=== PATIENT | female | born 1980 | race African-American/Black ===

== ENCOUNTER 2020-08-08 20:38 | Emergency (ER) | payer MEDICAID ==
[~2020-08-08] VITALS: Ht 175.3 cm; Wt 83.9 kg
--- NOTE | 2020-08-08 21:20 | NUR ---
ED Nurse Note: Recieved pt walk in from home, here with c/o lower abdominal pain since yesterday after drinking alcohol, pt states no appetite today and pain is worse, rated at 10/10, denies fevers, states also no appetite and when attempting to eat has emesis, pt urine sample collected and sent, gowned and placed on monitoring, will resume care as ordered by md whom is at bedside.
[2020-08-08 21:25] LABS: BASOPHILS % (AUTO) 0.7 % (0.0-2.0); EOSINOPHILS % (AUTO) 0.7 % (0.0-3.0); LYMPHOCYTES % (AUTO) 17.6 % (20.0-45.0); MEAN CORPUSCULAR VOLUME 98 FL (80-99); MONOCYTES % (AUTO) 4.1 % (1.0-10.0); NEUTROPHILS % (AUTO) 76.9 % (45.0-75.0); PLATELET COUNT 247 K/UL (150-450); RED CELL DISTRIBUTION WIDTH 12.1 % (11.6-14.8); WHITE BLOOD COUNT 12.3 K/UL (4.8-10.8)
[2020-08-08 21:26] LABS: APPEARANCE,URINE CLEAR; BILIRUBIN, URINE NEGATIVE (NEGATIVE); COLOR,URINE BROWN; GLUCOSE, URINE (UA) NEGATIVE (NEGATIVE); KETONES,URINE 4+ (NEGATIVE); LEUKOCYTE ESTERASE ,URINE 1+ (NEGATIVE); NITRITE,URINE POSITIVE (NEGATIVE); PH,URINE 6.5 (4.5-8.0); PROTEIN,URINE 2+ (NEGATIVE); UROBILINOGEN,URINE 1 MG/DL (0.0-1.0)
[2020-08-08] MEDS ORDERED: Ketorolac 30mg Inj IV ONE (21:30)
[2020-08-08] MEDS ORDERED: Omnipaque-300 100ml vial INJ PRN (21:30)
[2020-08-08 21:35] LABS: ANION GAP 3 mmol/L (5-15); BLOOD UREA NITROGEN 12 mg/dL (7-18); CALCIUM 8.8 MG/DL (8.5-10.1); CARBON DIOXIDE 31 MMOL/L (21-32); CHLORIDE 103 MMOL/L (98-107); CREATININE 0.9 MG/DL (0.55-1.30); POTASSIUM 3.3 MMOL/L (3.5-5.1); SODIUM 137 MMOL/L (136-145)
[2020-08-08 21:39] LABS: ALANINE AMINOTRANSFERASE 27 U/L (12-78); ALBUMIN 3.9 G/DL (3.4-5.0); ALKALINE PHOSPHATASE 58 U/L (46-116); ASPARTATE AMINO TRANSFERASE 15 U/L (15-37); BILIRUBIN,TOTAL 0.5 MG/DL (0.2-1.0)
[2020-08-08] MEDS ORDERED: Levofloxacin 750mg tab ORAL ONE (22:15)
[2020-08-08] MEDS ORDERED: Morphine Sulfate 4mg/ml Inj (IV USE ONLY) IVP ONE (22:15)
--- NOTE | 2020-08-08 22:15 | NUR ---
ED Nurse Note: Pt continues to rest quietly in bed, states pain meds not effective at all, md barry, new med orders recieved, will medicate as ordered with pain meds and antibiotic, monitor for any adverse reactions and effectiveness, and prepare for disposition.
--- NOTE | 2020-08-08 22:24 | Emergency Room Report ---
History of Present Illness General Chief Complaint: Abdominal Pain Source: Patient Present Illness HPI disclaimer: Please note that this report is being documented using [employer] technology. This can lead to erroneous entry secondary to incorrect interpretation by the dictating instrument. HPI: 40-year-old female no reported past medical history presents for abdominal pain. She states she has had lower abdominal pain with diarrhea and dysuria for the past 24 hours. Symptoms started last night. She reports 10 on 10 pain. Radiating to the back. No vaginal bleeding. No vaginal discharge. Last menstrual cycle approximately 1 month ago. After Allergies: Coded Allergies: PENICILLINS (Verified Allergy, Unknown, 08/08/20) COVID-19 Screening Contact w/high risk pt: No Experienced COVID-19 symptoms?: No COVID-19 Testing performed TEXT TRANSCRIBER: No Patient History Now: No Reviewed Nursing Documentation: PMH: Agreed; PSxH: Agreed Nursing Documentation-PMH Past Medical History: No Stated History Review of Systems All Other Systems: negative except mentioned in HPI Physical Exam Vital Signs Date Time Temp Pulse Resp B/P (MAP) Pulse Ox O2 Delivery O2 Flow Rate FiO2 08/08/20 20:56 99.0 98 20 132/90 (104) 98 Room Air Sp02 EP Interpretation: reviewed, normal General Appearance: well appearing, no apparent distress Head: normocephalic, atraumatic Eyes: bilateral eye PERRL, bilateral eye EOMI ENT: hearing grossly normal, moist mucus membranes Neck: full range of motion, supple Respiratory: lungs clear, normal breath sounds, no rhonchi, no respiratory distress, no retraction, no wheezing Cardiovascular #1: normal peripheral pulses, regular rate, rhythm, no murmur Gastrointestinal: soft, non-distended, no guarding, tenderness - Mild suprapubic tenderness noted no right lower quadrant tenderness noted Neurologic: alert, oriented x3, no focal defects Skin: normal color, warm/dry Medical Decision Making Diagnostic Impression: Primary Impression: Lower abdominal pain Additional Impression: UTI (urinary tract infection) ER Course MDM: Differential diagnosis included but not limited to UTI, pyelonephritis, gastroenteritis, gastritis, pancreatitis time review Clinical course-IV inserted IV fluids antiemetics and pain control given. Urine was positive for nitrites. Patient had no specific right lower quadrant tenderness but had mild suprapubic tenderness with dysuria also complained of diarrhea. I did consider CT scan initially however since patient has evidence of UTI we will treat with oral antibiotics and pain control. She is not improved on oral antibiotic she may return however I do believe she is stable for discharge at this time. Labs - Laboratory Tests Test 08/08/20 21:05 08/08/20 21:20 Urine Color Brown Urine Appearance Clear Urine pH 6.5 (4.5-8.0) Urine Specific [place] 1.015 (1.005-1.035) Urine Protein 2+ (NEGATIVE) H Urine Glucose (UA) Negative (NEGATIVE) Urine Ketones 4+ (NEGATIVE) H Urine Blood 2+ (NEGATIVE) H Urine Nitrite Positive (NEGATIVE) H Urine Bilirubin Negative (NEGATIVE) Urine Urobilinogen 1 MG/DL (0.0-1.0) H Urine Leukocyte Esterase 1+ (NEGATIVE) H Urine RBC 20-30 /HPF (0 - 2) H Urine WBC 2-4 /HPF (0 - 2) Urine Squamous Epithelial Cells Few /LPF (NONE/OCC) Urine Bacteria Few /HPF (NONE) Urine Mucus Many /LPF (NONE/OCC) H Urine HCG, Qualitative Negative (NEGATIVE) White Blood Count 12.3 K/UL (4.8-10.8) H Red Blood Count 4.30 M/UL (4.20-5.40) Hemoglobin 14.0 G/DL (12.0-16.0) Hematocrit 42.0 % (37.0-47.0) Mean Corpuscular Volume 98 FL (80-99) Mean Corpuscular Hemoglobin 32.5 PG (27.0-31.0) H Mean Corpuscular Hemoglobin Concent 33.3 G/DL (32.0-36.0) Red Cell Distribution Width 12.1 % (11.6-14.8) Platelet Count 247 K/UL (150-450) Mean Platelet Volume 7.2 FL (6.5-10.1) Neutrophils (%) (Auto) 76.9 % (45.0-75.0) H Lymphocytes (%) (Auto) 17.6 % (20.0-45.0) L Monocytes (%) (Auto) 4.1 % (1.0-10.0) Eosinophils (%) (Auto) 0.7 % (0.0-3.0) Basophils (%) (Auto) 0.7 % (0.0-2.0) Sodium Level 137 MMOL/L (136-145) Potassium Level 3.3 MMOL/L (3.5-5.1) L Chloride Level 103 MMOL/L (98-107) Carbon Dioxide Level 31 MMOL/L (21-32) Anion Gap 3 mmol/L (5-15) L Blood Urea Nitrogen 12 mg/dL (7-18) Creatinine 0.9 MG/DL (0.55-1.30) Estimated Glomerular Filtration Rate > 60 mL/min (>60) Glucose Level 112 MG/DL (74-106) H Calcium Level 8.8 MG/DL (8.5-10.1) Total Bilirubin 0.5 MG/DL (0.2-1.0) Aspartate Amino Transferase (AST) 15 U/L (15-37) Alanine Aminotransferase (ALT) 27 U/L (12-78) Alkaline Phosphatase 58 U/L (46-116) Total Protein 7.8 G/DL (6.4-8.2) Albumin 3.9 G/DL (3.4-5.0) Globulin 3.9 g/dL Albumin/Globulin Ratio 1.0 (1.0-2.7) Lipase 114 U/L (73-393) On reevaluation: Patient improved Plan-discharge home follow-up PMD oral antibiotics and return precautions Last Vital Signs Date Time Temp Pulse Resp B/P (MAP) Pulse Ox O2 Delivery O2 Flow Rate FiO2 08/08/20 20:56 99.0 98 20 132/90 (104) 98 Room Air Status: improved Disposition: HOME, SELF-CARE Condition: Stable Referrals: NON PHYSICIAN (PCP) Venancio Yeboah M.D. Aug 08, 2020 22:24
[2020-08-08] MEDS ORDERED: IBUPROFEN600 M1 ORAL (22:27)
[2020-08-08] MEDS ORDERED: LEVOFLOXACIN750 MG ORAL (22:27)
[2020-08-08] MEDS ORDERED: NORCO 5-325 TA1 EAC1 ORAL (22:27)
[2020-08-08 22:30] VITALS: BP 129/84
[2020-08-08 22:50] VITALS: BP 132/90
--- NOTE | 2020-08-08 22:50 | NUR ---
ER DISCHARGE NOTE: Patient is cleared to be discharged per ERMD, pt is aox4, on room air, with stable vital signs. pt was given dc and prescription instructions, pt was able to verbalize understanding, pt id band and iv site removed without complications. pt is able to ambulate with steady gait. pt took all belongings.
[2020-08-11] MEDS ORDERED: PHENAZOPYRIDIN100 MG ORAL (00:16)
== END 2020-08-08 22:50 | disposition home or self-care (01) ==
LOC: EMR 21:10
DX: N39.0 Urinary tract infection, site not specified (principal); R10.30 Lower abdominal pain, unspecified
CPT/HCPCS: 36415; 80053; 81003; 81025; 83690; 85025; 96374; 96375; J1885; J2270; J2405; Z7502; 99284